=== PATIENT | male | born 1980 | race Two or more races ===

== ENCOUNTER 2018-06-30 16:46 | Emergency (ER) | payer OTHER ==
[~2018-06-30] VITALS: Ht 175.3 cm; Wt 95.3 kg
[2018-06-30 18:27] LABS: Basophils # (auto) 0.1 uL; Basophils % (auto) 0.6 % (0.0-2.0); Eosinophils # (auto) 0 uL; Eosinophils % (auto) 0.4 % (0.0-7.0); Hematocrit 51.4 % (41.0-53.0); Hemoglobin 17.3 g/dL (13.5-17.5); Lymphocytes % (auto) 18.5 % (10.0-50.0); Mean Corpuscular Hemoglobin 29.8 pg (28.0-32.0); Mean Corpuscular Hgb Conc. 33.7 g/dL (32.0-36.0); Mean Corpuscular Volume 88.3 fL (80.0-100.0); Monocytes # (auto) 0.7 uL; Monocytes % (auto) 6.7 % (0.0-12.0); Neutrophils % (auto) 73.8 % (37.0-80.0); Nucleated Red Blood Cells % 0.2 %; Platelet Count (auto) 322 10^3/uL (140-450); Red Blood Cells 5.82 10^6/uL (4.5-5.90); Red Cell Distribution Width 15.5 % (11.8-14.3); White Blood Cell 10.8 10^3/uL (4.4-10.8)
[2018-06-30 18:43] LABS: Calcium 8.4 mg/dL (8.5-10.1); Potassium 3.7 mmol/L (3.5-5.1)
[2018-06-30 18:46] LABS: BUN/Creatinine Ratio 7.9; Bilirubin, Total 0.4 mg/dL (0.2-1.0); Total Protein 8.2 g/dL (6.4-8.2)
[2018-06-30] MEDS ORDERED: SODIUM CHLORIDE 0.9% 1,000 ML IVB ONE (18:48)
[2018-06-30] MEDS ORDERED: ONDANSETRON HCL 4 MG/2 ML VIAL IV ONE (19:00)
[2018-06-30 19:06] LABS: Salicylate 2.4 mg/dL (2.8-20.0)
[2018-06-30 19:11] LABS: Acetaminophen < 2.0 ug/mL (10-30)
[2018-06-30 19:50] LABS: INR 0.88 (0.9-1.15); Partial Thromboplastin Time 29.5 sec (23.78-33.04); Prothrombin Time 9.5 sec (9.27-12.13)
[2018-06-30] MEDS ORDERED: metroNIDAZOLE 500MG/100ML 100 ML IV ONE (20:00)
[2018-06-30] MEDS ORDERED: SODIUM CHLORIDE 0.9% 1,000 ML IV ONE (22:45)
[2018-06-30] MEDS ORDERED: KETOROLAC TROMETH 30 MG/ML 1ML VIAL IV ONE (22:45)
[2018-06-30] MEDS ORDERED: LORazepam 0.5 MG TAB PO ONE (23:30)
[2018-07-01] MEDS: MULTIPLE VITAMIN 10 ML, MAGNESIUM SULF SDV 50% 8 MEQ in SODIUM CHLORIDE 0.9% 1,000 ML IV SCH ×2 (02:03→22:00)
[2018-07-01] MEDS ORDERED: LORazepam 0.5 MG TAB PO ONE ×2 (06:15→14:00)
[2018-07-01] MEDS ORDERED: diphenhdrAMINE HCL 50 MG/1 ML VL IV ONE (06:15)
[2018-07-01] MEDS ORDERED: ONDANSETRON HCL 4 MG/2 ML VIAL IV ONE (08:30)
[2018-07-01 09:01] LABS: Urine WBC None Seen /hpf (0 - 3)
[2018-07-01 09:24] LABS: Urine Bacteria NONE SEEN /hpf (None Seen); Urine Blood Negative /uL (Negative); Urine Specific Gravity 1.016 (1.001-1.035)
[2018-07-01 09:25] LABS: Amphetamine Screen, Urine NEGATIVE (NEGATIVE); Barbiturate Scree,Urine NEGATIVE (NEGATIVE); Benzodiazephine Screen, Urine NEGATIVE (NEGATIVE); Cannabinoid Screen, Urine NEGATIVE (NEGATIVE); Cocaine Screen, Urine NEGATIVE (NEGATIVE); Opiate Scree,Urine NEGATIVE (NEGATIVE); Phencyclidine Screen, Urine NEGATIVE (NEGATIVE)
[2018-07-01] MEDS ORDERED: SODIUM CHLORIDE 0.9% 1,000 ML IV ONE (11:30)
[2018-07-01] MEDS ORDERED: QUEtiapine FUMARATE 25 MG TAB PO SCH ×2 (11:30→22:00)
[2018-07-01] MEDS ORDERED: PROMETHAZINE HCL 25 MG/ML 1ML IV ONE (11:30)
[2018-07-02] MEDS ORDERED: LORazepam 0.5 MG TAB PO ONE (02:30)
[2018-07-02 02:45] VITALS: BP 142/94
== END 2018-07-02 03:21 | disposition short-term general hospital (02) ==
LOC: ER 16:51
DX: K52.89 Other specified noninfective gastroenteritis and colitis (principal); R45.851 Suicidal ideations; F10.920 Alcohol use, unspecified with intoxication, uncomplicated; Y90.0 Blood alcohol level of less than 20 mg/100 ml
CPT/HCPCS: 36415; 71045; 74176; 80053; 80307; 80320; 80329; 81001; 82150; 83690; 83735; 85025; 85610; 85730; 94761; 96361; 96365; 96375; 96376; 99285; J1200; J1885; J2405; J2550; J3475; J3490; J7030

== ENCOUNTER 2019-05-31 13:58 | Emergency (ER) | payer OTHER ==
[~2019-05-31] VITALS: Ht 177.8 cm; Wt 95.4 kg
[2019-05-31 15:08] LABS: Basophils # (auto) 0.1 uL; Basophils % (auto) 1.1 % (0.0-2.0); Eosinophils # (auto) 0 uL; Hematocrit 47.5 % (41.0-53.0); Hemoglobin 16.1 g/dL (13.5-17.5); Lymphocytes # (auto) 2.1 uL; Lymphocytes % (auto) 39.6 % (10.0-50.0); Mean Corpuscular Hemoglobin 32.4 pg (28.0-32.0); Mean Corpuscular Hgb Conc. 33.9 g/dL (32.0-36.0); Mean Corpuscular Volume 95.5 fL (80.0-100.0); Monocytes # (auto) 0.5 uL; Monocytes % (auto) 9.8 % (0.0-12.0); Neutrophils # (auto) 2.7 uL; Neutrophils % (auto) 49.5 % (37.0-80.0); Nucleated Red Blood Cells % 0.1 %; Platelet Count (auto) 303 10^3/uL (140-450); Red Blood Cells 4.97 10^6/uL (4.5-5.90); Red Cell Distribution Width 15.6 % (11.8-14.3); White Blood Cell 5.4 10^3/uL (4.4-10.8)
[2019-05-31] MEDS ORDERED: ACETAMINOPHEN 325 MG TAB PO ONE (15:15)
[2019-05-31 15:29] LABS: Albumin 3.4 g/dL (3.4-5.0); BUN/Creatinine Ratio 7.1; Calcium 8.5 mg/dL (8.5-10.1); Potassium 3.8 mmol/L (3.5-5.1)
[2019-05-31 15:31] LABS: Bilirubin, Total 0.2 mg/dL (0.2-1.0); Total Protein 7.9 g/dL (6.4-8.2)
[2019-05-31 17:15] LABS: Amphetamine Screen, Urine NEGATIVE (NEGATIVE); Barbiturate Scree,Urine NEGATIVE (NEGATIVE); Benzodiazephine Screen, Urine NEGATIVE (NEGATIVE); Cocaine Screen, Urine NEGATIVE (NEGATIVE); Opiate Scree,Urine NEGATIVE (NEGATIVE); Phencyclidine Screen, Urine NEGATIVE (NEGATIVE)
[2019-05-31 17:24] LABS: Cannabinoid Screen, Urine NEGATIVE (NEGATIVE)
[2019-05-31] MEDS ORDERED: SODIUM CHLORIDE 0.9% 1,000 ML IVB ONE (17:41)
[2019-05-31] MEDS ORDERED: FOLIC ACID 1 MG, MULTIPLE VITAMIN 10 ML, MAGNESIUM SULF SDV 50% 8 MEQ, THIAMINE INJ 100... INJ ONE ×5 (17:45)
[2019-05-31] MEDS ORDERED: THIAMINE 100mg/ml INJ (200mg/2ml VIAL) IV ONE (17:45)
[2019-05-31] MEDS ORDERED: PROMETHAZINE HCL 25 MG/ML 1ML ONE (18:35)
[2019-05-31] MEDS ORDERED: PROMETHAZINE HCL 25 MG/ML 1ML IV ONE (18:45)
[2019-05-31 19:30] VITALS: BP 148/89
== END 2019-05-31 21:11 | disposition left against medical advice (07) ==
LOC: ER 13:58 → EDBD 13:58 → ER 21:11
DX: F10.920 Alcohol use, unspecified with intoxication, uncomplicated (principal); R51 Headache; R94.5 Abnormal results of liver function studies; Y90.0 Blood alcohol level of less than 20 mg/100 ml; Z53.29 Procedure and treatment not carried out because of patient's decision for other reasons
CPT/HCPCS: 36415; 70450; 71046; 72125; 80053; 80307; 80320; 85025; 96365; 96366; 96375; 99284; J2550; J3411; J3475; J7070

== ENCOUNTER 2019-12-19 23:29 | Inpatient (IN) | payer OTHER ==
[~2019-12-19] VITALS: Ht 175.3 cm; Wt 91.6 kg
[2019-12-20 01:17] LABS: Basophils # (auto) 0 10 ^3/uL (0-0.2); Basophils % (auto) 0.8 % (0.0-2.0); Eosinophils # (auto) 0 10 ^3/uL (0-0.8); Hematocrit 34.1 % (41.0-53.0); Hemoglobin 11.5 g/dL (13.5-17.5); Lymphocytes # (auto) 1.4 10 ^3/uL (0.4-5.4); Lymphocytes % (auto) 48.4 % (10.0-50.0); Mean Corpuscular Hemoglobin 33.8 pg (28.0-32.0); Mean Corpuscular Hgb Conc. 33.7 g/dL (32.0-36.0); Mean Corpuscular Volume 100.3 fL (80.0-100.0); Monocytes # (auto) 0.3 10 ^3/uL (0-1.3); Monocytes % (auto) 11.7 % (0.0-12.0); Neutrophils # (auto) 1.1 10 ^3/uL (1.6-8.6); Neutrophils % (auto) 39.1 % (37.0-80.0); Nucleated Red Blood Cells % 0.2 %; Platelet Count (auto) 133 10^3/uL (140-450); Red Cell Distribution Width 18.1 % (11.8-14.3); White Blood Cell 2.9 10^3/uL (4.4-10.8)
[2019-12-20] MEDS ORDERED: ONDANSETRON HCL 4 MG/2 ML VIAL IV ONE (01:30)
[2019-12-20] MEDS ORDERED: THIAMINE INJ 100 MG in SODIUM CHLORIDE 0.9% 1,000 ML IV ONE (01:30)
[2019-12-20 01:33] LABS: Albumin 2.6 g/dL (3.4-5.0); BUN/Creatinine Ratio 3.3; Calcium 7.6 mg/dL (8.5-10.1); Potassium 3.9 mmol/L (3.5-5.1)
[2019-12-20 01:38] LABS: Acetaminophen < 2.0 ug/mL (10-30); Bilirubin, Total 1.5 mg/dL (0.2-1.0); Salicylate < 1.7 mg/dL (2.8-20.0); Total Protein 6.9 g/dL (6.4-8.2)
[2019-12-20] MEDS ORDERED: THIAMINE 100mg/ml INJ (200mg/2ml VIAL) IV ONE (02:15)
[2019-12-20] MEDS ORDERED: SODIUM CHLORIDE 0.9% 500 ML IV ONE (03:30)
[2019-12-20 03:44] LABS: Urine Bacteria FEW /hpf (None Seen); Urine Blood Negative /uL (Negative); Urine Hyaline Cast FEW /lpf (0 - 2); Urine Specific Gravity 1.009 (1.001-1.035); Urine WBC 1 /hpf (0 - 3)
[2019-12-20 04:01] LABS: Barbiturate Scree,Urine NEGATIVE (NEGATIVE); Benzodiazephine Screen, Urine NEGATIVE (NEGATIVE); Cannabinoid Screen, Urine POSITIVE (NEGATIVE); Cocaine Screen, Urine NEGATIVE (NEGATIVE); Opiate Scree,Urine POSITIVE (NEGATIVE); Phencyclidine Screen, Urine NEGATIVE (NEGATIVE)
[2019-12-20 04:09] LABS: Amphetamine Screen, Urine NEGATIVE (NEGATIVE)
[2019-12-20] MEDS ORDERED: LACTULOSE 20Gm/30ML SOLN PO ONE ×2 (04:45→06:15)
[2019-12-20] MEDS ORDERED: LACTULOSE 10g/15ml SOLN PR ONE (05:00)
[2019-12-20] MEDS ORDERED: SODIUM CHLORIDE 0.9% 1,000 ML IV ONE ×3 (05:45→11:30)
[2019-12-20] MEDS ORDERED: MORPHINE SULF INJ 2 MG/ML SYRINGE 1ML IV PRN (05:45)
[2019-12-20] MEDS ORDERED: NITROGLYCERIN 0.4 MG SL TAB SL PRN (05:45)
[2019-12-20] MEDS ORDERED: LACTULOSE 10g/15ml SOLN PR SCH (06:00)
[2019-12-20] MEDS ORDERED: LACTULOSE 20Gm/30ML SOLN ONE (06:07)
[2019-12-20] MEDS: ONDANSETRON HCL 4 MG/2 ML VIAL IV PRN ×3 (08:08→15:35)
[2019-12-20] MEDS: PANTOPRAZOLE 40 MG/10 ML VIAL INJ IV SCH (10:26)
[2019-12-20] MEDS ORDERED: GABA100C9 PO (11:59)
[2019-12-20] MEDS ORDERED: QUET50TA PO ×2 (11:59)
[2019-12-20] MEDS ORDERED: QUET25TA37 PO (11:59)
[2019-12-20] MEDS ORDERED: FLUO60TA7 PO (11:59)
[2019-12-20] MEDS ORDERED: PANT40TA2 PO (11:59)
[2019-12-20] MEDS ORDERED: RIFA200T4 PO (11:59)
[2019-12-20] MEDS ORDERED: NIC21P TD (12:11)
[2019-12-20] MEDS: LACTULOSE 20Gm/30ML SOLN PO SCH ×2 (12:15→18:02)
[2019-12-20] MEDS: FOLIC ACID 1 MG, MULTIPLE VITAMIN 10 ML, MAGNESIUM SULF SDV 50% 8 MEQ, THIAMINE INJ 100... INJ SCH ×5 (12:17)
[2019-12-20] MEDS: CLINDAMYCIN 600MG IV 50 ML IV SCH ×2 (13:12→22:11)
[2019-12-20] MEDS: chlordiazePOXIDE HCL 25 MG CAP PO PRN (15:35)
[2019-12-20] MEDS: LORazepam 2MG/ML-1ML VIAL IV PRN (19:55)
[2019-12-20] MEDS ORDERED: METOPROLOL SUCCINATE XL 50 MG TAB PO ONE (20:00)
[2019-12-21] MEDS: LACTULOSE 20Gm/30ML SOLN PO SCH ×4 (00:16→18:44)
[2019-12-21 02:25] VITALS: BP 147/103
--- NOTE | 2019-12-21 02:25 | NUR ---
Telemetry admit from [facility] admitted to Telemetry unit. Patient oriented to DEANDRA MCCULLOUGH, primary RN, unit, room, bed, and unit policies regarding patient care and visiting hours. Patient now on continuous telemetry monitoring, tele box 2 and telemetry reading on arrival to unit is normal sinus rhythm. Patient placed on bedside oxygen 2l, weighed by bedscale and encouraged to call if they need something. All questions and concerns addressed, patient verbalized understanding. pt is a0x3,no s/s of distress or sob
[2019-12-21] MEDS: chlordiazePOXIDE HCL 25 MG CAP PO PRN (02:35)
[2019-12-21] MEDS ORDERED: METO25TA93 PO (04:29)
[2019-12-21] MEDS: CLINDAMYCIN 600MG IV 50 ML IV SCH ×3 (05:46→21:36)
[2019-12-21] MEDS: LORazepam 2MG/ML-1ML VIAL IV PRN ×3 (06:20→21:36)
--- NOTE | 2019-12-21 07:45 | NUR ---
Agueda notified about patients NEGATIVE covid test. Charge (Agueda) stated she did know, and is waiting on bed availability.
--- NOTE | 2019-12-21 08:30 | NUR ---
Charge nurse notified of downgrade to med/surg.
[2019-12-21 09:00] VITALS: BP 136/92
[2019-12-21] MEDS: PANTOPRAZOLE 40 MG/10 ML VIAL INJ IV SCH (09:19)
[2019-12-21 11:00] LABS: Basophils # (auto) 0 10 ^3/uL (0-0.2); Eosinophils # (auto) 0 10 ^3/uL (0-0.8); Hematocrit 33.1 % (41.0-53.0); Hemoglobin 11.1 g/dL (13.5-17.5); Lymphocytes # (auto) 1.1 10 ^3/uL (0.4-5.4); Lymphocytes % (auto) 26.6 % (10.0-50.0); Mean Corpuscular Hemoglobin 33.9 pg (28.0-32.0); Mean Corpuscular Hgb Conc. 33.4 g/dL (32.0-36.0); Mean Corpuscular Volume 101.4 fL (80.0-100.0); Monocytes # (auto) 0.7 10 ^3/uL (0-1.3); Monocytes % (auto) 16.6 % (0.0-12.0); Neutrophils # (auto) 2.3 10 ^3/uL (1.6-8.6); Neutrophils % (auto) 55.8 % (37.0-80.0); Nucleated Red Blood Cells % 0.1 %; Platelet Count (auto) 127 10^3/uL (140-450); Red Blood Cells 3.26 10^6/uL (4.5-5.90); Red Cell Distribution Width 16.5 % (11.8-14.3); White Blood Cell 4.2 10^3/uL (4.4-10.8)
[2019-12-21 11:23] LABS: Albumin 2.6 g/dL (3.4-5.0); Anion Gap 5 (5-15); Blood Urea Nitrogen 2 mg/dL (7-18); Calcium 7.5 mg/dL (8.5-10.1); Carbon Dioxide 30 mmol/L (21-32); Chloride 101 mmol/L (98-107); Glucose 111 mg/dL (74-106); Potassium 3.6 mmol/L (3.5-5.1); Sodium 136 mmol/L (136-145)
[2019-12-21 11:27] LABS: Alanine Aminotransferase 62 U/L (16-61); Alkaline Phosphatase 237 U/L (45-117); Aspartate Aminotransferase 149 U/L (15-37); BUN/Creatinine Ratio 2.6; Bilirubin, Total 2.6 mg/dL (0.2-1.0); GFR African American 144 mL/min; GFR Non-African American 119 mL/min; Total Protein 6.2 g/dL (6.4-8.2)
[2019-12-21 11:36] LABS: Blood Alcohol < 3.0 mg/dL (0-5)
[2019-12-21] MEDS: FOLIC ACID 1 MG, MULTIPLE VITAMIN 10 ML, MAGNESIUM SULF SDV 50% 8 MEQ, THIAMINE INJ 100... INJ SCH ×5 (11:40)
--- NOTE | 2019-12-21 12:02 | NUR ---
Assessment Regarding social service consult for mental health concerns, substance abuse and advance directive. Patient is a 54-year-old male who is alert and oriented. Prior to admission patient lived with his mother Maria Isabel or [phone] and functioned independently. Patient informed me he can care for his own ADLs. Patient informed me he has a cane for home use. Patient informed me he has crutches but does not use them. Patient informed me he does not have any other medical equipment or home oxygen. Offered patient resource for substance abuse and information for advance directive. Patient refused resource for substance abused stating he sees Dr. De Leon who is his Psychiatrist and sees him every 3 months who prescribes him with medication. Patient informed me he also sees his therapist Ed[place]. Patient accepted advance directive information. Informed patient form will be given to bedside nurse who will provide the form to him. Patient informed me he will return home to his prior living arrangement post discharge and his mother will transport him home. Advised patient to follow up with his primary doctor after discharge. Informed patient he has the right to participate in all discharge planning. Patient verbalized understanding and agreed. Faxed advance directive form to nurses station and informed JULITA Holliday. Per JULITA Holliday she will provide advance directive information to patient. Addendum: 12/21/19 at 1204 by RADHA FRANCES Amended: Links added.
[2019-12-21 13:00] VITALS: BP 141/92
--- NOTE | 2019-12-21 13:00 | NUR ---
IV leaking. IV to right forearm leaking. Swelling noted around IV access. Skin cool to touch. IV discontinued at this time using clean technique. Patient tolerated well. Patient refusing new IV insertion at this time as he is waiting for MD to see if he will get DC'd today. Addendum: 12/21/19 at 1545 by BILLY HAMM RN RN wrong patient
--- NOTE | 2019-12-21 13:27 | NUR ---
report given to Makenna, patient to transfer to [facility].
--- NOTE | 2019-12-21 14:20 | NUR ---
late antibiotic Patient has no IV line at this time. Patient refusing to have IV line placed until he knows if he's going to be DC'd. Addendum: 12/21/19 at 1547 by BILLY HAMM RN RN wrong patient
[2019-12-21] MEDS: ONDANSETRON HCL 4 MG/2 ML VIAL IV PRN (15:35)
--- NOTE | 2019-12-21 15:35 | NUR ---
IV IV access obtained, via clean sterile technique by inserting 20 gauge catheter at left forearm after 1 attempt. IV secured properly. No trauma to site. Patient tolerated well. 1400 scheduled IV antibiotic started at this time. 1400 scheduled antibiotic started at this time Addendum: 12/21/19 at 1547 by BILLY HAMM RN RN wrong patient
[2019-12-21 17:00] VITALS: BP 140/98
--- NOTE | 2019-12-21 19:45 | NUR ---
Opening Shift Note Assumed care of patient, awake and alert. No S/S of distress/SOB or pain. Instructed on POC and to call for assist PRN, patient verbalized understanding, call light within reach, will continue to monitor for changes Q1hr and PRN.
[2019-12-21 22:13] VITALS: BP 132/86
[2019-12-22] MEDS: LACTULOSE 20Gm/30ML SOLN PO SCH ×3 (00:05→12:00)
[2019-12-22] MEDS: ONDANSETRON HCL 4 MG/2 ML VIAL IV PRN ×2 (03:19→09:47)
[2019-12-22 05:45] VITALS: BP 143/94
[2019-12-22] MEDS: CLINDAMYCIN 600MG IV 50 ML IV SCH (06:21)
[2019-12-22] MEDS: LORazepam 2MG/ML-1ML VIAL IV PRN ×2 (06:22→09:46)
--- NOTE | 2019-12-22 07:40 | NUR ---
Opening shift note Assumed care of patient from NOC RN. Patient is AOX4 no s/s of distress or shortness of breath noted. Bed is in lowest locked position, side rails up x2 and call light is within reach. Updated patient on plan of care and educated patient to call for help when needed. Patient verbalized understanding. Will continue to monitor q1hr and PRN.
[2019-12-22 09:00] VITALS: BP 136/85
[2019-12-22] MEDS: PANTOPRAZOLE 40 MG/10 ML VIAL INJ IV SCH (09:46)
--- NOTE | 2019-12-22 09:50 | NUR ---
IV removal IV AT left wrist, noted to be reddened and tender to touch. IV DC'd with clean sterile technique, catheter fully intact. Pressure dressing applied to site. Patient tolerated well.
--- NOTE | 2019-12-22 10:00 | NUR ---
IV insertion IV access obtained, via clean sterile technique by inserting 22 gauge catheter at LFA after 2 attempts. IV secured properly. No trauma to site. Patient tolerated well.
--- NOTE | 2019-12-22 11:25 | NUR ---
Physician rounding Dr. Barrios at bedside, updated patient on plan of care and patient verbalized understanding. New orders received, will continue to monitor.
[2019-12-22] MEDS: FOLIC ACID 1 MG, MULTIPLE VITAMIN 10 ML, MAGNESIUM SULF SDV 50% 8 MEQ, THIAMINE INJ 100... INJ SCH ×5 (12:00)
[2019-12-22 12:14] VITALS: BP 154/94
--- NOTE | 2019-12-22 14:00 | NUR ---
Discharge note Discharge instructions given as ordered. Encourage to follow up with PMD as instructed. All questions and concerns addressed. Patient verbalized understanding. IV removed with catheter intact, pressure dressing applied. Patient taken to vehicle via wheelchair with all personal belongings, accompanied by staff member. No distress noted at time of departure.
== END 2019-12-22 14:00 | disposition home or self-care (01) | DRG 432 ==
LOC: EDBD 23:29 → ER 23:29 → TELE 23:30 → TELE-EAST 12-21 02:25 → TELE-WESTW 12-21 14:16 → WEST WING 12-22 05:33
PROVIDERS: ADMIT Nurse Practitioner; ATTEND Family Medicine
DX: K70.30 Alcoholic cirrhosis of liver without ascites (principal); G92 Toxic encephalopathy; F10.229 Alcohol dependence with intoxication, unspecified; F20.9 Schizophrenia, unspecified; Y90.8 Blood alcohol level of 240 mg/100 ml or more; K70.40 Alcoholic hepatic failure without coma; E86.0 Dehydration; D64.9 Anemia, unspecified; Z03.818 Encounter for observation for suspected exposure to other biological agents ruled out
CPT/HCPCS: 36415; 70450; 71045; 72125; 80053; 80307; 80320; 80329; 81001; 82140; 85025; 93005; C9113; G0378; J2405; J3490

== ENCOUNTER 2020-04-15 16:46 | Emergency (ER) | payer MEDICAID, OTHER ==
[~2020-04-15] VITALS: Ht 175.3 cm; Wt 93.0 kg
[~2020-04-15 16:46] MED LIST: FLUO60TA7 PO; GABA100C9 PO; METO25TA93 PO; NIC21P TD; PANT40TA2 PO; QUET25TA37 PO; QUET50TA PO; RIFA200T4 PO
[2020-04-15 17:25] LABS: Basophils # (auto) 0 10 ^3/uL (0-0.2); Basophils % (auto) 0.4 % (0.0-2.0); Eosinophils # (auto) 0 10 ^3/uL (0-0.8); Hematocrit 36.2 % (41.0-53.0); Hemoglobin 12.3 g/dL (13.5-17.5); Lymphocytes # (auto) 1.1 10 ^3/uL (0.4-5.4); Lymphocytes % (auto) 20.9 % (10.0-50.0); Mean Corpuscular Hemoglobin 31.7 pg (28.0-32.0); Mean Corpuscular Hgb Conc. 33.8 g/dL (32.0-36.0); Mean Corpuscular Volume 93.7 fL (80.0-100.0); Monocytes # (auto) 0.6 10 ^3/uL (0-1.3); Monocytes % (auto) 12.4 % (0.0-12.0); Neutrophils # (auto) 3.4 10 ^3/uL (1.6-8.6); Neutrophils % (auto) 66.3 % (37.0-80.0); Nucleated Red Blood Cells % 0.1 %; Platelet Count (auto) 164 10^3/uL (140-450); Red Blood Cells 3.87 10^6/uL (4.5-5.90); Red Cell Distribution Width 14.6 % (11.8-14.3); White Blood Cell 5.1 10^3/uL (4.4-10.8)
[2020-04-15 17:35] LABS: Albumin 3.2 g/dL (3.4-5.0); Calcium 7.8 mg/dL (8.5-10.1)
[2020-04-15 17:38] LABS: BUN/Creatinine Ratio 4.5; Bilirubin, Total 0.2 mg/dL (0.2-1.0); Total Protein 6.9 g/dL (6.4-8.2)
[2020-04-15 19:11] VITALS: BP 131/75
== END 2020-04-15 19:55 | disposition short-term general hospital (02) ==
LOC: ER 16:49
DX: S06.5X9A Traumatic subdural hemorrhage with loss of consciousness of unspecified duration, initial encounter (principal); U07.1 COVID-19; F10.10 Alcohol abuse, uncomplicated; I10 Essential (primary) hypertension; F20.9 Schizophrenia, unspecified; F41.9 Anxiety disorder, unspecified; F32.9 Major depressive disorder, single episode, unspecified; F17.210 Nicotine dependence, cigarettes, uncomplicated; Z79.899 Other long term (current) drug therapy; Y90.9 Presence of alcohol in blood, level not specified; X58.XXXA Exposure to other specified factors, initial encounter; Y93.89 Activity, other specified; Y92.89 Other specified places as the place of occurrence of the external cause; Y99.8 Other external cause status
CPT/HCPCS: 36415; 70450; 80053; 80320; 82140; 83690; 85025; 87426; 93005